=== PATIENT | female | born 1930 | race Caucasian/White ===

== ENCOUNTER 2019-09-26 16:33 | Inpatient (IN) | payer MEDICARE, OTHER ==
[~2019-09-26] VITALS: Ht 152.4 cm; Wt 57.1 kg
[2019-09-26 17:50] VITALS: BP 167/67
[2019-09-26] MEDS: IV NORMAL SALINE 1000ML BAG 1,000 ML IV SCH (18:23)
[2019-09-26 18:26] LABS: HEMATOCRIT 38.2 % (36.0-47.0); HEMOGLOBIN 12.8 g/dL (12.0-15.5); RED BLOOD COUNT 4.1 x10^6/uL (3.50-5.40); RED CELL DISTRIBUTION WIDTH 14.1 % (11.5-14.5); WHITE BLOOD COUNT 9.7 x10^3/uL (4.0-11.0)
[2019-09-26 18:41] LABS: ALBUMIN/GLOBULIN RATIO 0.9 (1.0-1.7); CALCIUM 9.1 mg/dL (8.5-10.1); CREATININE 0.9 mg/dL (0.6-1.0); GFR 59.2; POTASSIUM 3.5 mmol/L (3.5-5.1); TOTAL BILIRUBIN 0.6 mg/dL (0.2-1.0); TOTAL PROTEIN 6.3 g/dL (6.4-8.2)
[2019-09-26 19:55] VITALS: BP 172/69
[2019-09-26 22:38] VITALS: BP 168/71
[2019-09-27] VITALS (8 sets, daily range): BP systolic 138–190; BP diastolic 55–81
--- NOTE | 2019-09-27 04:20 | RAD ---
KUB History: NG tube placement. Technique: Supine view the abdomen. Comparison: CT September 26, 2019 Findings: Interval placement enteric tube with tip projecting over the region of the stomach. Dilated loops of small bowel within the imaged upper abdomen. Postop changes lower lumbar spine. Lung bases are degraded. Impression: 1. Interval placement enteric tube with tip projecting over region of the lateral stomach. Electronically signed by: Pedro Mercado DO (09/27/2019 4:17 AM) [id number]
[2019-09-27] MEDS: IV NORMAL SALINE 1000ML BAG 1,000 ML IV SCH (04:25)
[2019-09-27] MEDS: fentaNYL PF VIAL 100 MCG/2 ML VIAL IVP PRN ×2 (04:48→09:08)
[2019-09-27] MEDS: ONDANSETRON PF 4 MG/2 ML VIAL. IVP PRN (05:50)
[2019-09-27] MEDS: hydrALAZINE 20 MG/ML VIAL. IVP PRN ×2 (08:36→16:54)
[2019-09-27] MEDS: PANTOPRAZOLE IV PUSH 40 MG VIAL. IVP SCH (09:07)
--- NOTE | 2019-09-27 09:22 | HP ---
ADMIT DATE: 09/26/2019 HISTORY OF PRESENT ILLNESS: The patient is an 89-year-old female patient, a resident at [facility], who presented to the Emergency Room of [facility] with a complaint of abdominal pain, nausea and vomiting for the last 2 days. She also feels weak and dehydrated. Denied any fever or chills. She has a history of abdominal operation due to ovarian mass. She denied any blood in her stool. Denied any hematemesis. She states that her last bowel movement was about 4-5 days. Denied any chest pain or trouble breathing. She was evaluated in the Emergency Room of [facility] and her lab work was essentially unremarkable; however, CT scan of the abdomen and pelvis showed that the patient has distal small bowel obstruction, small amount of free fluid, but no free air and therefore, the patient has had an NG tube to intermittent suction, was transferred to [facility] for further evaluation by surgical team. She was kept n.p.o., started on IV fluid as well as pain medication. PAST MEDICAL HISTORY: Significant for osteoarthritis. She has also breast cancer. PAST SURGICAL HISTORY: Significant for right mastectomy, 2 back surgeries, bilateral cataract extraction, tonsillectomy, appendectomy, and removal of an ovarian cyst or tumor. She has also left axillary lymph node dissection with resultant left upper extremity lymphedema. ALLERGIES: She has no known drug allergies. MEDICATIONS: Her medication list is unknown. I actually contacted the [facility] to fax us the list of medications. FAMILY HISTORY: She had one older brother and one younger brother, both are . Her younger brother because of bowel perforation. His other one brother who is younger and healthy at the age of 76. Her father in his early 60s because of myocardial infarction. Mother also in her early 60s due to ruptured cerebral aneurysm. SOCIAL HISTORY: She has been celibate since for about 50 years now. 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 She spent 22 years in [place], [place] and has moved to the current facility about 2 years ago. She has never smoked. Drinks alcohol occasionally. REVIEW OF SYSTEMS: As per history of present illness. PHYSICAL EXAMINATION: GENERAL: On arrival to the Emergency Room, she looked well and was clearly in no apparent respiratory distress. No pallor, jaundice, cyanosis or thyromegaly. No jugular venous distention. No lower limb edema. VITAL SIGNS: Her heart rate was 77, blood pressure 159/76, temperature was 98.3, respiratory rate was 16, and oxygen saturation was 95%. HEAD, EYES, EARS, NOSE AND THROAT: Normocephalic, atraumatic. NECK: Supple. HEART: Showed normal first and second heart sounds. No gallop or murmur. CHEST: Clear to auscultation. No crepitation or rhonchi. ABDOMEN: Distended with some tenderness in the periumbilical area. Hyperactive bowel sounds. No masses. No pulsatile masses. NEUROLOGIC: She was alert, oriented x 3 with no obvious motor or sensory deficit. PSYCHOLOGICAL: She had affect, judgment and mood normal. She was investigated in the Emergency Room of [facility]. LABORATORY DATA: Her lab work showed a white cell count of 10,800, hemoglobin 13.9, hematocrit 42, MCV 95, and platelet count 367,000. Her chemistry showed a serum sodium 143, potassium 3.9, chloride 103, bicarbonate 31, anion gap of 9, BUN 19, creatinine 1.1, estimated GFR was 47 mL per minute. Her glucose 144, calcium was 10. Total bilirubin, AST, ALT, alkaline phosphatase were normal. Total protein 7.3, albumin 3.5 and lipase was 43. Her urinalysis essentially unremarkable. CT scan showed the liver and spleen are unremarkable on this noncontrasted study. The gallbladder is normal. There is an 11 mm hypodense nodule within the head of the pancreas, which measures 4 Hounsfield units consistent with a cyst, no extrahepatic biliary ductal dilatation is seen. No adrenal masses seen. No urinary tract stones or hydronephrosis or hydroureter is evident. No renal masses seen on this noncontrast study. The urinary bladder wall is smooth. Calcified atheromatous disease of the abdominal aorta is seen. No focal aneurysmal dilatation is seen. No abnormal enlarged lymph. No abdominal or pelvic lymphadenopathy is seen. The patient has bilateral inguinal hernias that are containing only fat. There is moderate distention of the stomach. Dilated loops of proximal small bowel are seen. There is a caliber change with respect to the distal small bowel. Therefore, the findings are consistent with a small-bowel obstruction. Mild mesenteric edema is seen. A small amount of free intraperitoneal fluid is seen. No free intraperitoneal air is seen. The appendix is unremarkable. Left lung base atelectasis is seen. Uterus is surgically absent. L4, L5 and S1 fusion is seen. No lytic process evident. ASSESSMENT AND PLAN: The patient was admitted with a small-bowel obstruction, transferred to [facility]. Continue with IV fluid, n.p.o. status and NG tube to intermittent suction. We did consult the surgical team. ANNITA RED MD DR: ANNY/kenyon JOB#: [id number] / [id number]
--- NOTE | 2019-09-27 10:10 | NUR ---
SW following. Discussed with RN, pt is from [facility] in [place]. NG tube, and bowel rest. RN anticipates pt will be here through the weekend. SW will continue to follow.
--- NOTE | 2019-09-27 10:27 | PN ---
DATE: 09/27/2019 SUBJECTIVE: The patient is resting slightly propped up in bed, in no apparent distress. She does complain of mild discomfort in her left lower quadrant. She also complained of burning sensation in her stomach. Denied any chills, rigors or fever, no nausea, no vomiting. She has not had any bowel movement, did not pass any gas. OBJECTIVE: GENERAL: When I examined her, she looked well and was clearly in no apparent respiratory distress. No pallor, jaundice, cyanosis or thyromegaly. No jugular venous distention. No lower limb edema. VITAL SIGNS: Her heart rate was 81, blood pressure was 190/73, temperature was 98, respiratory rate was 16, and oxygen saturation was 91% on room air. HEAD, EYES, EARS, NOSE AND THROAT: Showed normocephalic, atraumatic. She has an NG tube to the right nostril. NECK: Supple. CARDIAC: Normal first and second heart sounds. No gallop or murmur. CHEST: Clear to auscultation. No crepitation or rhonchi. ABDOMEN: Distended, soft with mild tenderness in the left lower quadrant. Bowel sounds are active. NEUROLOGIC: She is awake, alert, responding appropriately. All cranial nerves intact. She moves extremities without difficulty. Her intake and output incompletely recorded. LABORATORY DATA: Showed a white cell count 9700, hemoglobin 12.8, hematocrit 38, MCV 93, and platelet count 330,000. Her serum sodium was 142, potassium 3.5, chloride 106, bicarbonate 29, anion gap of 7, BUN 18, creatinine 0.9, estimated GFR was 59 mL per minute. Her glucose was 123, calcium was 9.1, and lactic acid was 0.8. Total bilirubin, AST, ALT, alkaline phosphatase were normal. Lactate dehydrogenase was 174. Total protein 6.3, albumin 3. ASSESSMENT: In summary, this is an 89-year-old female patient who was admitted with small-bowel obstruction. She continues to have an NG tube to intermittent suction. She did have a KUB done and it did show that she has dilated loops of small bowel within the imaged upper abdomen, postoperative changes in lower lumbar spine. PLAN: To continue with IV fluid, continue with pain management, antiemetic. I will start her on Protonix. We have already consulted the surgical team. I will also change her IV fluid to D5 half normal with potassium chloride and I will decide on further management accordingly. ANNITA RED MD DR: ANNY/kenyon JOB#: [id number] / [id number]
[2019-09-27] MEDS: POTASSIUM CL 20MEQ D5-0.45NACL 1,000 ML IV SCH (11:31)
--- NOTE | 2019-09-27 12:12 | PDOC2 ---
WARRENAMADO Galen BOOKING SUPERVISOR 09/27/19 1212: CONSULT Date of Consult Date of Consult DATE: 09/27/19 TIME: 12:07 Reason for Consult Reason for Consult: SBO Referring Physician Referring Physician: Dr Teague Identification/Chief Complaint Chief Complaint abdominal pain Source Source: Chart review, Patient History of Present Illness Reason for Visit: Abdominal pain, nausea, and emesis x 2 days. Reports hx of diarrhea for a while, however yesterday very small stool, nothing since, no flatus. Prior to that its been about a week since stool Past Medical History Heme/Onc: Cancer (breast) Musculoskeletal: Osteoarthritis Past Surgical History Past Surgical History: Appendectomy, Mastectomy, Other (removal ovarian tumor, back surgery) Family History Family History: Family History Unknown Social History No ALCOHOL: rare Drugs: None Lives: Alone Current Medications Current Medications Current Medications Sodium Chloride 1,000 ml @ 100 mls/hr Q10H IV Last administered on 09/27/19at 04:25; Start 09/26/19 at 17:45; Stop 09/27/19 at 09:11; Status DC Fentanyl Citrate (Fentanyl 2ml Vial) 25 mcg PRN Q3HRS PRN IVP PAIN Last administered on 09/27/19at 09:08; Start 09/26/19 at 17:45 Ondansetron HCl (Zofran) 4 mg PRN Q6HRS PRN IVP NAUSEA/VOMITING Last administered on 09/27/19at 05:50; Start 09/26/19 at 17:45 Hydralazine HCl (Apresoline Inj) 10 mg PRN Q4HRS PRN IVP ELEVATED BP, SEE COMMENTS Last administered on 09/27/19at 08:36; Start 09/27/19 at 08:30 Pantoprazole Sodium (PROTONIX VIAL for IV PUSH) 40 mg DAILYAC IVP Last administered on 09/27/19at 09:07; Start 09/27/19 at 10:00 Potassium Chloride/Dextrose/ Sod Cl 1,000 ml @ 75 mls/hr [id number] IV Last administered on 09/27/19at 11:31; Start 09/27/19 at 09:15 Allergies Allergies: Coded Allergies: amoxicillin (Verified Allergy, Unknown, 09/27/19) baclofen (Verified Allergy, Unknown, 09/27/19) cimetidine (Verified Allergy, Unknown, 09/27/19) clindamycin (Verified Allergy, Unknown, 09/27/19) levofloxacin (Verified Allergy, Unknown, 09/27/19) morphine (Verified Allergy, Unknown, 09/27/19) naproxen (Verified Allergy, Unknown, 09/27/19) ROS General: YES: Chills, Appetite (loss) PSYCHOLOGICAL ROS: No: Anxiety, Depression Eyes: No Blurry vision, No Decreased vision HEENT: No: Heacaches, Sore Throat Hematological and Lymphatic: No: Bleeding Problems, Blood Clots Respiratory: No: Cough, Shortness of breath Cardiovascular: No Chest Pain, No Palpitations Gastrointestinal: Yes Other (see hpi) Genitourinary: No Dysuria, No Hematuria Musculoskeletal: No Joint Pain, No Muscle Pain Neurological: No Impaired Coord/balance, No Numbness/Tingling Skin: No Pruritus, No Rash Physical Exam General: Alert, Oriented X3, Cooperative HEENT: Atraumatic, Other (NG bilious ) Lungs: Clear to auscultation, Normal air movement Heart: Regular rate, Normal S1, Normal S2 Abdomen: Soft, Other (ND, NTTP) Extremities: No clubbing, No cyanosis Skin: No rashes, No breakdown Neuro: Normal speech, Sensation intact Psych/Mental Status: Mental status NL, Mood NL MUSCULOSKELETAL: No deformity, No swelling Vitals VITALS Vital Signs Date Time Temp Pulse Resp B/P (MAP) Pulse Ox O2 Delivery O2 Flow Rate FiO2 09/27/19 11:30 Room Air 09/27/19 08:36 81 195/77 09/27/19 07:00 98.0 16 91 98.0 Labs Labs Laboratory Tests Test 09/26/19 18:15 White Blood Count 9.7 x10^3/uL (4.0-11.0) Red Blood Count 4.10 x10^6/uL (3.50-5.40) Hemoglobin 12.8 g/dL (12.0-15.5) Hematocrit 38.2 % (36.0-47.0) Mean Corpuscular Volume 93 fL (79-100) Mean Corpuscular Hemoglobin 31 pg (25-35) Mean Corpuscular Hemoglobin Concent 34 g/dL (31-37) Red Cell Distribution Width 14.1 % (11.5-14.5) Platelet Count 330 x10^3/uL (140-400) Sodium Level 142 mmol/L (136-145) Potassium Level 3.5 mmol/L (3.5-5.1) Chloride Level 106 mmol/L (98-107) Carbon Dioxide Level 29 mmol/L (21-32) Anion Gap 7 (6-14) Blood Urea Nitrogen 18 mg/dL (7-20) Creatinine 0.9 mg/dL (0.6-1.0) Estimated GFR (Cockcroft-Gault) 59.2 BUN/Creatinine Ratio 20 (6-20) Glucose Level 123 mg/dL (70-99) Lactic Acid Level 0.8 mmol/L (0.4-2.0) Calcium Level 9.1 mg/dL (8.5-10.1) Total Bilirubin 0.6 mg/dL (0.2-1.0) Aspartate Amino Transf (AST/SGOT) 24 U/L (15-37) Alanine Aminotransferase (ALT/SGPT) 22 U/L (14-59) Alkaline Phosphatase 99 U/L (46-116) Lactate Dehydrogenase 174 U/L (81-234) Total Protein 6.3 g/dL (6.4-8.2) Albumin 3.0 g/dL (3.4-5.0) Albumin/Globulin Ratio 0.9 (1.0-1.7) Laboratory Tests Test 09/26/19 18:15 White Blood Count 9.7 x10^3/uL (4.0-11.0) Red Blood Count 4.10 x10^6/uL (3.50-5.40) Hemoglobin 12.8 g/dL (12.0-15.5) Hematocrit 38.2 % (36.0-47.0) Mean Corpuscular Volume 93 fL (79-100) Mean Corpuscular Hemoglobin 31 pg (25-35) Mean Corpuscular Hemoglobin Concent 34 g/dL (31-37) Red Cell Distribution Width 14.1 % (11.5-14.5) Platelet Count 330 x10^3/uL (140-400) Sodium Level 142 mmol/L (136-145) Potassium Level 3.5 mmol/L (3.5-5.1) Chloride Level 106 mmol/L (98-107) Carbon Dioxide Level 29 mmol/L (21-32) Anion Gap 7 (6-14) Blood Urea Nitrogen 18 mg/dL (7-20) Creatinine 0.9 mg/dL (0.6-1.0) Estimated GFR (Cockcroft-Gault) 59.2 BUN/Creatinine Ratio 20 (6-20) Glucose Level 123 mg/dL (70-99) Lactic Acid Level 0.8 mmol/L (0.4-2.0) Calcium Level 9.1 mg/dL (8.5-10.1) Total Bilirubin 0.6 mg/dL (0.2-1.0) Aspartate Amino Transf (AST/SGOT) 24 U/L (15-37) Alanine Aminotransferase (ALT/SGPT) 22 U/L (14-59) Alkaline Phosphatase 99 U/L (46-116) Lactate Dehydrogenase 174 U/L (81-234) Total Protein 6.3 g/dL (6.4-8.2) Albumin 3.0 g/dL (3.4-5.0) Albumin/Globulin Ratio 0.9 (1.0-1.7) Assessment/Plan Assessment/Plan SBO vs ileus NG, hydration, bowel rest check plain films in AM KRUNAL JO MD 09/27/19 1553: CONSULT Assessment/Plan Assessment/Plan Patient seen and examined by me. She is comfortable, denies abdominal pain. No vomiting since admission. No flatus or BM. CT reviewed. Agree with Warren's assessment and plan. AMADO HAIDER APRN Sep 27, 2019 12:12 KRUNAL JO MD Sep 27, 2019 15:53
[2019-09-27] MEDS ORDERED: DIPH25TA64 PO (16:26)
[2019-09-27] MEDS ORDERED: CALC-109 PO (16:26)
[2019-09-27] MEDS ORDERED: IPRATROPIUM BROMIDE NS (16:26)
[2019-09-27] MEDS ORDERED: CHOL3000 PO (16:26)
[2019-09-27] MEDS ORDERED: LOPE-101 PO (16:26)
[2019-09-27] MEDS ORDERED: ACET500T68 PO (16:26)
[2019-09-27] MEDS ORDERED: ACET-704 PO (16:26)
[2019-09-27] MEDS ORDERED: [UNRECOGNIZED DRUG - CODE] PO (16:26)
[2019-09-27] MEDS ORDERED: LACT1CAP19 PO (16:26)
[2019-09-27] MEDS ORDERED: METR70GE2 MC (16:26)
[2019-09-27] MEDS ORDERED: ONDA4TAB12 PO (16:26)
[2019-09-27] MEDS ORDERED: KETO120S2 TP (16:26)
[2019-09-27] MEDS ORDERED: MOME45CR3 TP (16:26)
[2019-09-27] MEDS ORDERED: METO50TA6 PO (16:26)
[2019-09-27] MEDS ORDERED: TORS20TA2 PO (16:26)
[2019-09-27] MEDS ORDERED: DICL100G18 TP (16:26)
[2019-09-27] MEDS ORDERED: MAGN1TAB PO ×2 (16:26)
[2019-09-27] MEDS ORDERED: CELE200C PO (16:26)
[2019-09-27] MEDS ORDERED: POLY17PO29 PO (16:26)
[2019-09-27] MEDS ORDERED: ECHI400C12 PO (16:26)
[2019-09-27] MEDS ORDERED: POTA10TA12 PO (16:26)
[2019-09-27] MEDS ORDERED: BETA15CR5 TP (16:26)
[2019-09-27] MEDS ORDERED: SIMV40TA18 PO (16:26)
[2019-09-27] MEDS ORDERED: METO25TA4 PO (16:26)
[2019-09-27] MEDS ORDERED: BISM262T94 PO (16:26)
[2019-09-27] MEDS ORDERED: METH-38 PO (16:26)
[2019-09-27] MEDS ORDERED: ASPI-630 PO (16:26)
[2019-09-27] MEDS ORDERED: MULT-658 PO (16:26)
--- NOTE | 2019-09-27 18:10 | RAD ---
Exam: Frontal view of the abdomen INDICATION: NG tube placement TECHNIQUE: Frontal view of the abdomen Comparisons: None FINDINGS: Enteric tube with tip in the left upper quadrant likely within the stomach. Sidehole projects at the level of the distal esophagus. Multiple air-filled distended loops of bowel are noted in the visualized upper abdomen. IMPRESSION: Enteric tube as described above. Sidehole is likely in the distal esophagus. Recommend advancement of 5 to 7 cm. Electronically signed by: Neo Oliveira MD (09/27/2019 6:07 PM) [id number]
--- NOTE | 2019-09-27 19:15 | RAD ---
Exam: Abdomen one view INDICATION: NG tube placement TECHNIQUE: Frontal view of the abdomen Comparisons: Radiograph earlier today FINDINGS: There is been advancement of the enteric tube with tip in the left upper quadrant and sidehole also in the left upper quadrant likely within the stomach. Multiple air-filled dilated loops of small bowel are visualized in the upper abdomen. IMPRESSION: Advancement of the enteric tube which appears to be in appropriate position. Electronically signed by: Neo Oliveira MD (09/27/2019 7:12 PM) [id number]
--- NOTE | 2019-09-27 19:59 | NUR ---
Pt. tx to room 648. Gave BS report to Camila MORSE
[2019-09-27] MEDS: METOPROLOL TARTRATE 5 MG/5 ML VIAL. IVP SCH (20:50)
[2019-09-28] MEDS: POTASSIUM CL 20MEQ D5-0.45NACL 1,000 ML IV SCH (00:04)
[2019-09-28] MEDS: METOPROLOL TARTRATE 5 MG/5 ML VIAL. IVP SCH ×5 (00:22→23:28)
[2019-09-28 03:03] VITALS: BP 152/83
[2019-09-28 04:59] LABS: CREATININE 0.8 mg/dL (0.6-1.0); GFR 67.8; MAGNESIUM 2.4 mg/dL (1.8-2.4); POTASSIUM 3.4 mmol/L (3.5-5.1)
[2019-09-28] MEDS: PANTOPRAZOLE IV PUSH 40 MG VIAL. IVP SCH (06:27)
[2019-09-28 07:00] VITALS: BP 160/81
--- NOTE | 2019-09-28 08:05 | RAD ---
ACUTE ABDOMEN SERIES Indication: Small bowel obstruction Date of service: 09/28/2019 .Comparison: KUB from 09/27/[address] abdomen and pelvis from 09/26/2019 Procedure: PA chest and upright and supine abdomen views are obtained. Findings: Chest: Cardiac size and pulmonary vessels are normal. There is a feeding tube traversing the length of the chest and terminating in the left upper abdomen the stomach. Pneumonia, pneumothorax or pleural effusion are not present. Bones are normal Abdomen: Suggested increased gaseous distention of the small bowel loops throughout the central abdomen. There is stool in the right colon with relative paucity of air and stool in the left colon and rectosigmoid region. No definite pneumoperitoneum is identified. Impression: Normal Chest . Mildly increased gaseous distention of the small bowel loops. Small bowel obstruction not excluded. If indicated, follow-up CT scan of the abdomen would be useful for further evaluation. Electronically signed by: Prachi Mcqueen MD (09/28/2019 8:02 AM) [id number]
--- NOTE | 2019-09-28 08:26 | PN ---
DATE: 09/28/2019 SUBJECTIVE: The patient is resting, slightly propped up in bed, in no apparent distress, awake, alert. Denied any complaint, in particular, denied any nausea or vomiting. She has not had any bowel movement nor that she passed any gas. She continued to have NG tube to intermittent suction. She has had an acute abdomen series, which was not read yet. PHYSICAL EXAMINATION: GENERAL: When I examined her this morning, she looked well and was clearly in no apparent respiratory distress, slightly pale. No jaundice, cyanosis, or thyromegaly. No jugular venous distention. No lower limb edema. VITAL SIGNS: Her heart rate was 82, blood pressure was 160/80, temperature was 97.5, respiratory rate was 18, and oxygen saturation was 91% on room air. HEAD, EYES, EARS, NOSE, AND THROAT: Showed normocephalic, atraumatic. NECK: Supple. HEART: Normal first and second sounds. No gallop or murmur. CHEST: Clear to auscultation. No crepitation or rhonchi. ABDOMEN: Slightly distended presently. Soft, nontender. There is no guarding or rigidity. No organomegaly. All hernial orifices are intact. Bowel sounds normal. NEUROLOGIC: She is awake, alert, responding appropriately. All cranial nerves are intact. Moves extremities without difficulty. Her intake was 1300, output was 1100. LABORATORY DATA: As of this morning, her serum sodium is slightly up at 146, potassium 3.4, chloride 110, bicarbonate was 28, anion gap of 8, BUN 14, creatinine 0.8, estimated GFR was 68 mL per minute. Her glucose 136, calcium was 9, and magnesium was 2.4. ASSESSMENT: Small-bowel obstruction with NG tube to intermittent suction. Other medical problems include hypertension, hyperlipidemia as well as generalized osteoarthritis. PLAN: My plan is obviously to continue with IV fluid. Her sodium is slightly elevated, so we will change her IV fluid to D5 with 40 mEq of potassium chloride as she has also mild hypokalemia. ANNITA RED MD DR: ANNY/kenyon JOB#: [id number] / [id number]
[2019-09-28] MEDS: POTASSIUM CHLORIDE 40 MEQ in IV DEXTROSE 5% 1,000 ML IV SCH ×2 (09:27→22:06)
--- NOTE | 2019-09-28 09:58 | PDOC ---
AMADO HAIDER [employer] SUPERINTENDENT 09/28/19 0958: SURGICAL PROGRESS NOTE Subjective no pain no flatus no n/v Vital Signs Vital Signs Date Time Temp Pulse Resp B/P (MAP) Pulse Ox O2 Delivery O2 Flow Rate FiO2 09/28/19 07:00 97.5 82 18 160/81 (107) 91 Room Air 97.5 I&O Intake and Output 09/28/19 07:00 Intake Total 0 ml Output Total 475 ml Balance -475 ml Intake Oral 0 ml Output Urine Total 50 ml Gastric Drainage Total 425 ml # Voids 3 General: Alert, Oriented X3, Cooperative HEENT: Other (ng bilious ) Abdomen: Soft, No tenderness Labs Laboratory Tests Test 09/26/19 18:15 09/28/19 03:40 White Blood Count 9.7 x10^3/uL (4.0-11.0) Red Blood Count 4.10 x10^6/uL (3.50-5.40) Hemoglobin 12.8 g/dL (12.0-15.5) Hematocrit 38.2 % (36.0-47.0) Mean Corpuscular Volume 93 fL (79-100) Mean Corpuscular Hemoglobin 31 pg (25-35) Mean Corpuscular Hemoglobin Concent 34 g/dL (31-37) Red Cell Distribution Width 14.1 % (11.5-14.5) Platelet Count 330 x10^3/uL (140-400) Sodium Level 142 mmol/L (136-145) 146 mmol/L (136-145) Potassium Level 3.5 mmol/L (3.5-5.1) 3.4 mmol/L (3.5-5.1) Chloride Level 106 mmol/L (98-107) 110 mmol/L (98-107) Carbon Dioxide Level 29 mmol/L (21-32) 28 mmol/L (21-32) Anion Gap 7 (6-14) 8 (6-14) Blood Urea Nitrogen 18 mg/dL (7-20) 14 mg/dL (7-20) Creatinine 0.9 mg/dL (0.6-1.0) 0.8 mg/dL (0.6-1.0) Estimated GFR (Cockcroft-Gault) 59.2 67.8 BUN/Creatinine Ratio 20 (6-20) Glucose Level 123 mg/dL (70-99) 136 mg/dL (70-99) Lactic Acid Level 0.8 mmol/L (0.4-2.0) Calcium Level 9.1 mg/dL (8.5-10.1) 9.0 mg/dL (8.5-10.1) Total Bilirubin 0.6 mg/dL (0.2-1.0) Aspartate Amino Transf (AST/SGOT) 24 U/L (15-37) Alanine Aminotransferase (ALT/SGPT) 22 U/L (14-59) Alkaline Phosphatase 99 U/L (46-116) Lactate Dehydrogenase 174 U/L (81-234) Total Protein 6.3 g/dL (6.4-8.2) Albumin 3.0 g/dL (3.4-5.0) Albumin/Globulin Ratio 0.9 (1.0-1.7) Magnesium Level 2.4 mg/dL (1.8-2.4) Laboratory Tests Test 09/28/19 03:40 Sodium Level 146 mmol/L (136-145) Potassium Level 3.4 mmol/L (3.5-5.1) Chloride Level 110 mmol/L (98-107) Carbon Dioxide Level 28 mmol/L (21-32) Anion Gap 8 (6-14) Blood Urea Nitrogen 14 mg/dL (7-20) Creatinine 0.8 mg/dL (0.6-1.0) Estimated GFR (Cockcroft-Gault) 67.8 Glucose Level 136 mg/dL (70-99) Calcium Level 9.0 mg/dL (8.5-10.1) Magnesium Level 2.4 mg/dL (1.8-2.4) Assessment/Plan SBO no improvement will check SBFT with GG LOTUS ZHOU MD 09/28/19 1648: SURGICAL PROGRESS NOTE Assessment/Plan Pt seen and examined. Agree with Ms. Haider's note Pt with c/o abd bloating abd distended, NTTP SBFT ongoing AMADO HAIDER APRN Sep 28, 2019 09:58 LOTUS ZHOU MD Sep 28, 2019 16:48
[2019-09-28] MEDS ORDERED: IOHEXOL 300 MG/ML 100ML VIAL. ONE (10:24)
[2019-09-28] MEDS ORDERED: CONTRAST GIVEN. MC PRN (10:30)
[2019-09-28] MEDS ORDERED: IOHEXOL 300 MG/ML 100ML VIAL. PO ONE (10:30)
[2019-09-28 11:00] VITALS: BP 147/77
[2019-09-28] MEDS: ONDANSETRON PF 4 MG/2 ML VIAL. IVP PRN (14:06)
[2019-09-28 15:00] VITALS: BP 182/83
[2019-09-28] MEDS: fentaNYL PF VIAL 100 MCG/2 ML VIAL IVP PRN ×2 (16:40→22:01)
[2019-09-28 19:00] VITALS: BP 183/87
[2019-09-28 23:00] VITALS: BP 179/93
[2019-09-29 03:00] VITALS: BP 156/61
--- NOTE | 2019-09-29 04:46 | NUR ---
Pt up to [facility]- had 2 very large BM- second one with hard bits to it. The rest loose and brown. Had 900 out of NG. Pt reported feeling a little better. Will continue to monitor pt status closely.
[2019-09-29 05:30] LABS: HEMATOCRIT 40.8 % (36.0-47.0); HEMOGLOBIN 13.5 g/dL (12.0-15.5); RED BLOOD COUNT 4.32 x10^6/uL (3.50-5.40); RED CELL DISTRIBUTION WIDTH 14.5 % (11.5-14.5); WHITE BLOOD COUNT 7.6 x10^3/uL (4.0-11.0)
[2019-09-29 05:33] LABS: ALBUMIN 2.8 g/dL (3.4-5.0); ALBUMIN/GLOBULIN RATIO 0.8 (1.0-1.7); CALCIUM 9.1 mg/dL (8.5-10.1); CREATININE 0.8 mg/dL (0.6-1.0); GFR 67.8; POTASSIUM 3.4 mmol/L (3.5-5.1); TOTAL BILIRUBIN 0.8 mg/dL (0.2-1.0); TOTAL PROTEIN 6.2 g/dL (6.4-8.2)
[2019-09-29] MEDS: METOPROLOL TARTRATE 5 MG/5 ML VIAL. IVP SCH ×4 (06:00→23:00)
[2019-09-29] MEDS: PANTOPRAZOLE IV PUSH 40 MG VIAL. IVP SCH (07:30)
[2019-09-29 07:59] VITALS: BP 146/81
--- NOTE | 2019-09-29 08:28 | RAD ---
Exam performed: Gastrografin Small bowel series. HISTORY: Suspected small bowel obstruction. DATE OF SERVICE: 10/11/2019. COMPARISON: Acute abdominal series from earlier the same day. FINDINGS: Acute abdominal series from earlier demonstrates gaseous distention of the small bowel loops. Patient was injected 400 cc of Omnipaque 300 through the feeding tube and sequential portable KUB radiographs were obtained up to 21 hours. There is prompt emptying of the stomach with contrast seen in the small bowel soon after injection. The subsequent radiographs demonstrate slow forward propulsion of the contrast with progressive opacification of dilated small bowel loops. The 21 hour image demonstrates contrast throughout the colon including the rectosigmoid region. IMPRESSION: Small bowel series demonstrates slow progressive opacification of the small bowel loops without definite evidence of obstruction. Findings consistent with diffuse ileus pattern. Electronically signed by: Prachi Mcqueen MD (09/29/2019 8:25 AM) [id number]
--- NOTE | 2019-09-29 09:03 | PN ---
DATE: SUBJECTIVE: The patient is resting slightly propped up in bed, awake, alert. On questioning her, denied any complaint, particularly denied any abdominal pain. She apparently has had small bowel follow-through yesterday and she had a large bowel movement. The small bowel follow-through showed that there is slow progressive opacification of the small bowel loops without definite evidence of obstruction. Findings are consistent with diffuse ileus pattern. PHYSICAL EXAMINATION: GENERAL: When I saw her this morning, she looked well and was clearly in no apparent respiratory distress. No pallor, jaundice, cyanosis or thyromegaly. No jugular venous distention. No lower limb edema. VITAL SIGNS: Her heart rate was 99, blood pressure was 146/81, temperature 97.5, respiratory rate 20 and oxygen saturation was 95%. ABDOMEN: Soft, nontender. Bowel sounds are clearly active. Her intake incompletely recorded, output was 475. LABORATORY DATA: As of this morning, her white cell count was 7600, hemoglobin 13, hematocrit 40, MCV 94 and platelet count 332,000. Her chemistry showed a serum sodium 146, potassium 3.4, chloride 109, bicarbonate 26, anion gap of 11, BUN 16, creatinine 0.8, estimated GFR was 68 mL per minute. Glucose 114, calcium was 9.1. Total bilirubin, AST, ALT, alkaline phosphatase normal. Total protein 6.2, albumin 2.8. ASSESSMENT: 1. Small-bowel obstruction versus paralytic ileus, seems to be resolving. 2. Mild hypernatremia and hypokalemia. 3. Hypertension. 4. Hyperlipidemia. 5. Generalized osteoarthritis. PLAN: My plan is to continue with D5. ANNITA RED MD DR: ANNY/kenyon JOB#: [id number] / [id number]
--- NOTE | 2019-09-29 10:48 | PDOC ---
AMADO HAIDER PATIENT CLERICAL ASSISTANT 09/29/19 1048: SURGICAL PROGRESS NOTE Subjective feels better had 2 large stools after SBFT, now loose stools Vital Signs Vital Signs Date Time Temp Pulse Resp B/P (MAP) Pulse Ox O2 Delivery O2 Flow Rate FiO2 09/29/19 07:59 97.5 99 20 146/81 (102) 95 Nasal Cannula 3.0 97.5 I&O Intake and Output 09/29/19 07:00 Intake Total 200 ml Output Total 2952 ml Balance -2752 ml Intake Oral 200 ml Output Urine Total 100 ml Stool Total 2 ml Gastric Drainage Total 900 ml Drainage Total 1950 ml # Voids 1 # Bowel Movements 2 General: Alert, Oriented X3, Cooperative Abdomen: Soft, No tenderness Labs Laboratory Tests Test 09/28/19 03:40 09/29/19 05:00 Sodium Level 146 mmol/L (136-145) 146 mmol/L (136-145) Potassium Level 3.4 mmol/L (3.5-5.1) 3.4 mmol/L (3.5-5.1) Chloride Level 110 mmol/L (98-107) 109 mmol/L (98-107) Carbon Dioxide Level 28 mmol/L (21-32) 26 mmol/L (21-32) Anion Gap 8 (6-14) 11 (6-14) Blood Urea Nitrogen 14 mg/dL (7-20) 16 mg/dL (7-20) Creatinine 0.8 mg/dL (0.6-1.0) 0.8 mg/dL (0.6-1.0) Estimated GFR (Cockcroft-Gault) 67.8 67.8 Glucose Level 136 mg/dL (70-99) 114 mg/dL (70-99) Calcium Level 9.0 mg/dL (8.5-10.1) 9.1 mg/dL (8.5-10.1) Magnesium Level 2.4 mg/dL (1.8-2.4) White Blood Count 7.6 x10^3/uL (4.0-11.0) Red Blood Count 4.32 x10^6/uL (3.50-5.40) Hemoglobin 13.5 g/dL (12.0-15.5) Hematocrit 40.8 % (36.0-47.0) Mean Corpuscular Volume 94 fL (79-100) Mean Corpuscular Hemoglobin 31 pg (25-35) Mean Corpuscular Hemoglobin Concent 33 g/dL (31-37) Red Cell Distribution Width 14.5 % (11.5-14.5) Platelet Count 332 x10^3/uL (140-400) BUN/Creatinine Ratio 20 (6-20) Total Bilirubin 0.8 mg/dL (0.2-1.0) Aspartate Amino Transf (AST/SGOT) 19 U/L (15-37) Alanine Aminotransferase (ALT/SGPT) 14 U/L (14-59) Alkaline Phosphatase 80 U/L (46-116) Total Protein 6.2 g/dL (6.4-8.2) Albumin 2.8 g/dL (3.4-5.0) Albumin/Globulin Ratio 0.8 (1.0-1.7) Laboratory Tests Test 09/29/19 05:00 White Blood Count 7.6 x10^3/uL (4.0-11.0) Red Blood Count 4.32 x10^6/uL (3.50-5.40) Hemoglobin 13.5 g/dL (12.0-15.5) Hematocrit 40.8 % (36.0-47.0) Mean Corpuscular Volume 94 fL (79-100) Mean Corpuscular Hemoglobin 31 pg (25-35) Mean Corpuscular Hemoglobin Concent 33 g/dL (31-37) Red Cell Distribution Width 14.5 % (11.5-14.5) Platelet Count 332 x10^3/uL (140-400) Sodium Level 146 mmol/L (136-145) Potassium Level 3.4 mmol/L (3.5-5.1) Chloride Level 109 mmol/L (98-107) Carbon Dioxide Level 26 mmol/L (21-32) Anion Gap 11 (6-14) Blood Urea Nitrogen 16 mg/dL (7-20) Creatinine 0.8 mg/dL (0.6-1.0) Estimated GFR (Cockcroft-Gault) 67.8 BUN/Creatinine Ratio 20 (6-20) Glucose Level 114 mg/dL (70-99) Calcium Level 9.1 mg/dL (8.5-10.1) Total Bilirubin 0.8 mg/dL (0.2-1.0) Aspartate Amino Transf (AST/SGOT) 19 U/L (15-37) Alanine Aminotransferase (ALT/SGPT) 14 U/L (14-59) Alkaline Phosphatase 80 U/L (46-116) Total Protein 6.2 g/dL (6.4-8.2) Albumin 2.8 g/dL (3.4-5.0) Albumin/Globulin Ratio 0.8 (1.0-1.7) Problem List ileus SBFT without obstruction--improved and will DC NG start clears LOTUS ZHOU MD 09/29/19 1146: SURGICAL PROGRESS NOTE Assessment/Plan Pt seen and examined. Agree with Ms. Haider's note Pt feels better, passing loose stools NGT out abd soft will try some PO AMADO HAIDER APRN Sep 29, 2019 10:48 LOTUS ZHOU MD Sep 29, 2019 11:46
[2019-09-29] MEDS: POTASSIUM CHLORIDE 40 MEQ in IV DEXTROSE 5% 1,000 ML IV SCH (11:42)
[2019-09-29 11:59] VITALS: BP 161/89
[2019-09-29 15:59] VITALS: BP 180/91
--- NOTE | 2019-09-29 17:28 | NUR ---
pt did not have IV access all day till 1700..she was a hard stick and could not administer any IVP/IV meds/fluids... she now has 22 G in her Right wrist..restarting her fluids from this morning that were not finished due to bad IV. Jerad Javier RN
[2019-09-29] MEDS: ONDANSETRON PF 4 MG/2 ML VIAL. IVP PRN ×2 (18:18→23:00)
[2019-09-29 19:00] VITALS: BP 169/90
[2019-09-29] MEDS ORDERED: METOCLOPRAMIDE HCL 10 MG/2 ML VIAL. IVP PRN (20:30)
[2019-09-29] MEDS: fentaNYL PF VIAL 100 MCG/2 ML VIAL IVP PRN (22:59)
[2019-09-29 23:05] VITALS: BP 177/76
--- NOTE | 2019-09-30 02:06 | RAD ---
Supine and abdomen. HISTORY: NG placement Supine views were taken of the abdomen. There is an NG tube in the stomach. Stomach is mildly distended. There are distended loops of small bowel. There is contrast in the colon. Patient had previous lumbar spine series fusion surgery. There is thoracolumbar scoliosis. IMPRESSION: 1. Bowel distention. 2. NG tube in the stomach. Electronically signed by: Dave Osman MD (09/30/2019 2:03 AM) [id number]
[2019-09-30] MEDS: fentaNYL PF VIAL 100 MCG/2 ML VIAL IVP PRN (02:43)
[2019-09-30 03:08] VITALS: BP 169/82
[2019-09-30] MEDS: POTASSIUM CHLORIDE 40 MEQ in IV DEXTROSE 5% 1,000 ML IV SCH ×2 (03:44→17:33)
[2019-09-30] MEDS: METOPROLOL TARTRATE 5 MG/5 ML VIAL. IVP SCH ×4 (05:25→23:33)
[2019-09-30 05:38] LABS: CALCIUM 8.6 mg/dL (8.5-10.1); CREATININE 0.7 mg/dL (0.6-1.0); GFR 79.2; POTASSIUM 3.6 mmol/L (3.5-5.1)
[2019-09-30 07:00] VITALS: BP 148/73
--- NOTE | 2019-09-30 09:34 | PN ---
DATE: 09/30/2019 SUBJECTIVE: The patient currently did have 2 large stools after the small bowel follow through and did have also some loose bowel movement; however, she continued to complain of nausea and vomiting, and she was started on a clear liquid, but continued to have complaint of nausea and vomiting. We did try with Zofran and then also Reglan, and as she continued to be constantly nauseous and I actually recommended to place an NG tube back. The patient is feeling much better now. Her abdomen is very soft, nontender. Bowel sounds are audible. Her KUB this morning showed that the stomach is mildly distended. There are distended loops of small bowel. There is contrast in the colon. The patient had previous lumbar spine series fusion surgery. There is thoracolumbar scoliosis. PHYSICAL EXAMINATION: GENERAL: When I examined her this morning, she was resting slightly propped up in bed, in no apparent distress. No pallor, jaundice, cyanosis, or thyromegaly. No jugular venous distension. No lower limb edema. VITAL SIGNS: Her heart rate was 91, blood pressure was 148/73, temperature 97.8, respiratory rate was 18, and oxygen saturation was 92%. HEAD, EYES, EARS, NOSE AND THROAT: Normocephalic, atraumatic. She has an NG tube to the right nostril. NECK: Supple. HEART: Normal first and second heart sounds. No gallop or murmur. CHEST: Clear to auscultation. No crepitation or rhonchi. ABDOMEN: Distended, soft, nontender. No guarding or rigidity. No organomegaly. All hernial orifices are intact. Bowel sounds normal. NEUROLOGIC: She is awake, alert, responding appropriately. All cranial nerves are intact. She moves extremities without difficulty. Her intake over the last 24 hours was completely recorded. Her output was 3950 of which 900 mL were drainage from the NG tube. LABORATORY DATA: Her lab work this morning showed a serum sodium 144, potassium 3.6, chloride 106, bicarbonate 28, anion gap of 10, BUN 11, creatinine 0.7, estimated GFR was 79 mL per minute. Her glucose 152 and calcium was 8.6. ASSESSMENT: The patient was admitted with questionable small-bowel obstruction versus paralytic ileus that seemed to have resolved, but yesterday she had 2 large bowel movements and then also loose bowel movement; however, she was constantly nauseous and vomiting according to nursing staff. We tried Zofran and Reglan without much improvement and therefore an NG tube was placed. Her hyponatremia is resolved, as well as hypokalemia. Other medical problems include hypertension, hyperlipidemia and generalized osteoarthritis. PLAN: My plan is to continue with IV fluid for the time being. Await the surgical team's decision as the patient was constantly nauseous yesterday despite antiemetics including Zofran and Reglan. ANNITA RED MD DR: ANNY/kenyon JOB#: [id number] / [id number]
--- NOTE | 2019-09-30 09:37 | PDOC ---
AMADO HAIDER ROBOTIC WELD TECHNICIAN 09/30/19 0937: SURGICAL PROGRESS NOTE Subjective vomiting over night having loose stool NG back now Vital Signs Vital Signs Date Time Temp Pulse Resp B/P (MAP) Pulse Ox O2 Delivery O2 Flow Rate FiO2 09/30/19 07:00 97.8 91 18 148/73 (98) 92 Room Air 97.8 09/29/19 23:29 3.0 I&O Intake and Output 09/30/19 07:00 Output Total 600 ml Balance -600 ml Output Urine Total 0 ml Gastric Drainage Total 600 ml General: Alert, Oriented X3, Cooperative HEENT: Other (ng bilious ) Abdomen: Soft, No tenderness Labs Laboratory Tests Test 09/29/19 05:00 09/30/19 04:20 White Blood Count 7.6 x10^3/uL (4.0-11.0) Red Blood Count 4.32 x10^6/uL (3.50-5.40) Hemoglobin 13.5 g/dL (12.0-15.5) Hematocrit 40.8 % (36.0-47.0) Mean Corpuscular Volume 94 fL (79-100) Mean Corpuscular Hemoglobin 31 pg (25-35) Mean Corpuscular Hemoglobin Concent 33 g/dL (31-37) Red Cell Distribution Width 14.5 % (11.5-14.5) Platelet Count 332 x10^3/uL (140-400) Sodium Level 146 mmol/L (136-145) 144 mmol/L (136-145) Potassium Level 3.4 mmol/L (3.5-5.1) 3.6 mmol/L (3.5-5.1) Chloride Level 109 mmol/L (98-107) 106 mmol/L (98-107) Carbon Dioxide Level 26 mmol/L (21-32) 28 mmol/L (21-32) Anion Gap 11 (6-14) 10 (6-14) Blood Urea Nitrogen 16 mg/dL (7-20) 11 mg/dL (7-20) Creatinine 0.8 mg/dL (0.6-1.0) 0.7 mg/dL (0.6-1.0) Estimated GFR (Cockcroft-Gault) 67.8 79.2 BUN/Creatinine Ratio 20 (6-20) Glucose Level 114 mg/dL (70-99) 152 mg/dL (70-99) Calcium Level 9.1 mg/dL (8.5-10.1) 8.6 mg/dL (8.5-10.1) Total Bilirubin 0.8 mg/dL (0.2-1.0) Aspartate Amino Transf (AST/SGOT) 19 U/L (15-37) Alanine Aminotransferase (ALT/SGPT) 14 U/L (14-59) Alkaline Phosphatase 80 U/L (46-116) Total Protein 6.2 g/dL (6.4-8.2) Albumin 2.8 g/dL (3.4-5.0) Albumin/Globulin Ratio 0.8 (1.0-1.7) Laboratory Tests Test 09/30/19 04:20 Sodium Level 144 mmol/L (136-145) Potassium Level 3.6 mmol/L (3.5-5.1) Chloride Level 106 mmol/L (98-107) Carbon Dioxide Level 28 mmol/L (21-32) Anion Gap 10 (6-14) Blood Urea Nitrogen 11 mg/dL (7-20) Creatinine 0.7 mg/dL (0.6-1.0) Estimated GFR (Cockcroft-Gault) 79.2 Glucose Level 152 mg/dL (70-99) Calcium Level 8.6 mg/dL (8.5-10.1) Assessment/Plan ileus no surgical needs work toward DC ng as bowel function improves KRUNAL JO MD 10/01/19 1059: SURGICAL PROGRESS NOTE Assessment/Plan Agree with Warren's assessment and plan. AMADO HAIDER APRN Sep 30, 2019 09:37 KRUNAL JO MD Oct 01, 2019 10:59
[2019-09-30] MEDS: PANTOPRAZOLE IV PUSH 40 MG VIAL. IVP SCH (09:46)
[2019-09-30 11:00] VITALS: BP 141/69
[2019-09-30 15:00] VITALS: BP 140/74
[2019-09-30 19:55] VITALS: BP 158/92
[2019-09-30 23:11] VITALS: BP 147/81
[2019-10-01 03:38] VITALS: BP 131/74
[2019-10-01 04:23] LABS: HEMATOCRIT 36.2 % (36.0-47.0); HEMOGLOBIN 12.1 g/dL (12.0-15.5); RED BLOOD COUNT 3.87 x10^6/uL (3.50-5.40); RED CELL DISTRIBUTION WIDTH 14.3 % (11.5-14.5); WHITE BLOOD COUNT 6.7 x10^3/uL (4.0-11.0)
[2019-10-01] MEDS: POTASSIUM CHLORIDE 40 MEQ in IV DEXTROSE 5% 1,000 ML IV SCH ×2 (05:22→18:26)
[2019-10-01] MEDS: METOPROLOL TARTRATE 5 MG/5 ML VIAL. IVP SCH ×4 (05:23→23:22)
[2019-10-01 05:28] LABS: ALBUMIN 2.3 g/dL (3.4-5.0); ALBUMIN/GLOBULIN RATIO 0.8 (1.0-1.7); CALCIUM 8.1 mg/dL (8.5-10.1); CREATININE 0.6 mg/dL (0.6-1.0); GFR 94.6; POTASSIUM 3.4 mmol/L (3.5-5.1); TOTAL BILIRUBIN 0.6 mg/dL (0.2-1.0); TOTAL PROTEIN 5.1 g/dL (6.4-8.2)
[2019-10-01 07:00] VITALS: BP 147/77
[2019-10-01] MEDS: PANTOPRAZOLE IV PUSH 40 MG VIAL. IVP SCH (09:30)
--- NOTE | 2019-10-01 10:33 | NUR ---
SS following up with discharge planning. SS spoke with [facility], ; fax [phone], and was notified that when medically stable they would like pt to return to the [facility]. SS will continue to follow for discharge planning.
[2019-10-01 11:00] VITALS: BP 172/81
--- NOTE | 2019-10-01 11:01 | PDOC ---
SURGICAL PROGRESS NOTE Subjective Feeling better, has had several small BM's Vital Signs Vital Signs Date Time Temp Pulse Resp B/P (MAP) Pulse Ox O2 Delivery O2 Flow Rate FiO2 10/01/19 07:00 98.0 80 16 147/77 (100) 92 Room Air 98.0 09/30/19 07:50 3.0 I&O Intake and Output 10/01/19 07:00 Output Total 225 ml Balance -225 ml Gastric Drainage Total 225 ml # Voids 5 PATIENT HAS A LAI: No General: Alert, Oriented X3, Cooperative, mild distress Abdomen: Normal bowel sounds, Soft, No tenderness, Other (NGT in place) Labs Laboratory Tests Test 09/30/19 04:20 10/01/19 03:25 Sodium Level 144 mmol/L (136-145) 142 mmol/L (136-145) Potassium Level 3.6 mmol/L (3.5-5.1) 3.4 mmol/L (3.5-5.1) Chloride Level 106 mmol/L (98-107) 106 mmol/L (98-107) Carbon Dioxide Level 28 mmol/L (21-32) 28 mmol/L (21-32) Anion Gap 10 (6-14) 8 (6-14) Blood Urea Nitrogen 11 mg/dL (7-20) 8 mg/dL (7-20) Creatinine 0.7 mg/dL (0.6-1.0) 0.6 mg/dL (0.6-1.0) Estimated GFR (Cockcroft-Gault) 79.2 94.6 Glucose Level 152 mg/dL (70-99) 93 mg/dL (70-99) Calcium Level 8.6 mg/dL (8.5-10.1) 8.1 mg/dL (8.5-10.1) White Blood Count 6.7 x10^3/uL (4.0-11.0) Red Blood Count 3.87 x10^6/uL (3.50-5.40) Hemoglobin 12.1 g/dL (12.0-15.5) Hematocrit 36.2 % (36.0-47.0) Mean Corpuscular Volume 94 fL (79-100) Mean Corpuscular Hemoglobin 31 pg (25-35) Mean Corpuscular Hemoglobin Concent 34 g/dL (31-37) Red Cell Distribution Width 14.3 % (11.5-14.5) Platelet Count 275 x10^3/uL (140-400) BUN/Creatinine Ratio 13 (6-20) Total Bilirubin 0.6 mg/dL (0.2-1.0) Aspartate Amino Transf (AST/SGOT) 14 U/L (15-37) Alanine Aminotransferase (ALT/SGPT) 11 U/L (14-59) Alkaline Phosphatase 60 U/L (46-116) Total Protein 5.1 g/dL (6.4-8.2) Albumin 2.3 g/dL (3.4-5.0) Albumin/Globulin Ratio 0.8 (1.0-1.7) Laboratory Tests Test 10/01/19 03:25 White Blood Count 6.7 x10^3/uL (4.0-11.0) Red Blood Count 3.87 x10^6/uL (3.50-5.40) Hemoglobin 12.1 g/dL (12.0-15.5) Hematocrit 36.2 % (36.0-47.0) Mean Corpuscular Volume 94 fL (79-100) Mean Corpuscular Hemoglobin 31 pg (25-35) Mean Corpuscular Hemoglobin Concent 34 g/dL (31-37) Red Cell Distribution Width 14.3 % (11.5-14.5) Platelet Count 275 x10^3/uL (140-400) Sodium Level 142 mmol/L (136-145) Potassium Level 3.4 mmol/L (3.5-5.1) Chloride Level 106 mmol/L (98-107) Carbon Dioxide Level 28 mmol/L (21-32) Anion Gap 8 (6-14) Blood Urea Nitrogen 8 mg/dL (7-20) Creatinine 0.6 mg/dL (0.6-1.0) Estimated GFR (Cockcroft-Gault) 94.6 BUN/Creatinine Ratio 13 (6-20) Glucose Level 93 mg/dL (70-99) Calcium Level 8.1 mg/dL (8.5-10.1) Total Bilirubin 0.6 mg/dL (0.2-1.0) Aspartate Amino Transf (AST/SGOT) 14 U/L (15-37) Alanine Aminotransferase (ALT/SGPT) 11 U/L (14-59) Alkaline Phosphatase 60 U/L (46-116) Total Protein 5.1 g/dL (6.4-8.2) Albumin 2.3 g/dL (3.4-5.0) Albumin/Globulin Ratio 0.8 (1.0-1.7) Assessment/Plan Ileus having BMs Clamp NGT KRUNAL JO MD Oct 01, 2019 11:01
--- NOTE | 2019-10-01 12:47 | PN ---
DATE: 10/01/2019 SUBJECTIVE: The patient is resting slightly propped up in bed, in no apparent distress. She denied any nausea or vomiting. Denied any abdominal pain; however, she has not had any bowel movement, did not pass any gas according to her. PHYSICAL EXAMINATION: GENERAL: When I examined her, she looked well and was clearly in no apparent distress. VITAL SIGNS: Her heart rate was 80, blood pressure 147/77, temperature was 98, respiratory rate 16, and oxygen saturation was 92% on room air. ABDOMEN: Soft, nontender. There is no guarding or rigidity. No organomegaly. All hernial orifices are intact. Bowel sounds are normal. NEUROLOGIC: She is grossly intact. Her intake was incompletely recorded, output was 600. LABORATORY DATA: As of this morning, her white cell count was 6700, hemoglobin 12, hematocrit 36, MCV 94 and platelet count 275,000. Her chemistry showed a serum sodium 142, potassium 3.4, chloride 106, bicarbonate 28, anion gap of 8, BUN 8, creatinine 0.6, estimated GFR was 95 mL per minute. Her glucose was 93, calcium was 8.1. Total bilirubin, AST, ALT, alkaline phosphatase were normal and total protein was 5.1, albumin 2.3. ASSESSMENT: Paralytic ileus. The patient has not had any bowel movement and did not pass any flatus. We will continue with NG tube to suction. Continue with IV fluid for now. ANNITA RED MD DR: ANNY/kenyon JOB#: [id number] / [id number]
[2019-10-01 15:00] VITALS: BP 166/69
[2019-10-01 19:19] VITALS: BP 164/85
[2019-10-01 23:22] VITALS: BP 139/59
[2019-10-01] MEDS: fentaNYL PF VIAL 100 MCG/2 ML VIAL IVP PRN (23:35)
[2019-10-02] VITALS (7 sets, daily range): BP systolic 118–169; BP diastolic 60–86
[2019-10-02] MEDS: METOPROLOL TARTRATE 5 MG/5 ML VIAL. IVP SCH ×4 (06:30→23:27)
[2019-10-02 07:18] LABS: CALCIUM 8.4 mg/dL (8.5-10.1); CREATININE 0.6 mg/dL (0.6-1.0); GFR 94.6; POTASSIUM 4.1 mmol/L (3.5-5.1)
[2019-10-02] MEDS: POTASSIUM CHLORIDE 40 MEQ in IV DEXTROSE 5% 1,000 ML IV SCH ×2 (07:42→22:05)
[2019-10-02] MEDS: fentaNYL PF VIAL 100 MCG/2 ML VIAL IVP PRN (09:06)
[2019-10-02] MEDS: PANTOPRAZOLE IV PUSH 40 MG VIAL. IVP SCH (09:07)
--- NOTE | 2019-10-02 12:20 | PDOC ---
SURGICAL PROGRESS NOTE Subjective Patient doing quite well complaints right foot pain otherwise no abdominal pain no nausea vomiting and loose stools Vital Signs Vital Signs Date Time Temp Pulse Resp B/P (MAP) Pulse Ox O2 Delivery O2 Flow Rate FiO2 10/02/19 11:12 97.9 101 18 167/84 (111) 97 Room Air 97.9 10/02/19 08:00 3.0 I&O Intake and Output 10/02/19 07:00 Output Total 200 ml Balance -200 ml Output Urine Total 200 ml # Voids 4 # Bowel Movements 1 PATIENT HAS A LAI: No General: Alert, Oriented X3, Cooperative, mild distress Abdomen: Normal bowel sounds, Soft, No tenderness Labs Laboratory Tests Test 10/01/19 03:25 10/02/19 06:55 White Blood Count 6.7 x10^3/uL (4.0-11.0) Red Blood Count 3.87 x10^6/uL (3.50-5.40) Hemoglobin 12.1 g/dL (12.0-15.5) Hematocrit 36.2 % (36.0-47.0) Mean Corpuscular Volume 94 fL (79-100) Mean Corpuscular Hemoglobin 31 pg (25-35) Mean Corpuscular Hemoglobin Concent 34 g/dL (31-37) Red Cell Distribution Width 14.3 % (11.5-14.5) Platelet Count 275 x10^3/uL (140-400) Sodium Level 142 mmol/L (136-145) 137 mmol/L (136-145) Potassium Level 3.4 mmol/L (3.5-5.1) 4.1 mmol/L (3.5-5.1) Chloride Level 106 mmol/L (98-107) 105 mmol/L (98-107) Carbon Dioxide Level 28 mmol/L (21-32) 26 mmol/L (21-32) Anion Gap 8 (6-14) 6 (6-14) Blood Urea Nitrogen 8 mg/dL (7-20) 5 mg/dL (7-20) Creatinine 0.6 mg/dL (0.6-1.0) 0.6 mg/dL (0.6-1.0) Estimated GFR (Cockcroft-Gault) 94.6 94.6 BUN/Creatinine Ratio 13 (6-20) Glucose Level 93 mg/dL (70-99) 96 mg/dL (70-99) Calcium Level 8.1 mg/dL (8.5-10.1) 8.4 mg/dL (8.5-10.1) Total Bilirubin 0.6 mg/dL (0.2-1.0) Aspartate Amino Transf (AST/SGOT) 14 U/L (15-37) Alanine Aminotransferase (ALT/SGPT) 11 U/L (14-59) Alkaline Phosphatase 60 U/L (46-116) Total Protein 5.1 g/dL (6.4-8.2) Albumin 2.3 g/dL (3.4-5.0) Albumin/Globulin Ratio 0.8 (1.0-1.7) Laboratory Tests Test 10/02/19 06:55 Sodium Level 137 mmol/L (136-145) Potassium Level 4.1 mmol/L (3.5-5.1) Chloride Level 105 mmol/L (98-107) Carbon Dioxide Level 26 mmol/L (21-32) Anion Gap 6 (6-14) Blood Urea Nitrogen 5 mg/dL (7-20) Creatinine 0.6 mg/dL (0.6-1.0) Estimated GFR (Cockcroft-Gault) 94.6 Glucose Level 96 mg/dL (70-99) Calcium Level 8.4 mg/dL (8.5-10.1) Assessment/Plan Resolution of her ileus DC NG tube and advance diet as tolerated KRUNAL JO MD Oct 02, 2019 12:20
[2019-10-02 13:11] LABS: C-REACTIVE PROTEIN 31.2 mg/L (0-3.3); URIC ACID 4.3 mg/dL (2.6-6.0)
--- NOTE | 2019-10-02 14:37 | PN ---
DATE: 10/02/2019 SUBJECTIVE: The patient is sitting in her recliner comfortably, in no apparent distress. Her NG tube was clamped and she denied any nausea or vomiting. She apparently had a bowel movement and stated that she has passed some gas. Her main complaint today is actually pain in her right foot that is mostly on the inner side. Her first metatarsophalangeal joint is normal. There is no redness there. She has marked tenderness on the first metatarsal bone on the inner side. There is no obvious swelling or redness or obvious deformity. She has never had any history of gout before. PHYSICAL EXAMINATION: GENERAL: When I examined her, she looked well and was clearly in no apparent respiratory distress. No pallor, jaundice, cyanosis or thyromegaly. No jugular venous distention. No limb edema. VITAL SIGNS: Her heart rate was 101, blood pressure was 167/84, temperature was 97.9, respiratory rate was 18 and oxygen saturation was 97%. HEAD, EYES, EARS, NOSE AND THROAT: Showed normocephalic, atraumatic. She has NG tube to the right nostril. NECK: Supple. HEART: Normal first and second heart sounds. No gallop or murmur. CHEST: Clear to auscultation. No crepitation or rhonchi. ABDOMEN: Distended, soft, nontender. No guarding or rigidity. No organomegaly. All hernial orifice intact. Bowel sounds normal. NEUROLOGIC: She is awake, alert, responding appropriately. All cranial nerves intact. She moves extremities without difficulty. Her intake over the last 24 hours and output was incompletely recorded. LABORATORY DATA: Her chemistry this morning showed serum sodium was 137, potassium 4.1, chloride 105, bicarbonate 26, anion gap of 6, BUN 5, creatinine 0.6, estimated GFR was 95 mL per minute. Her glucose was 96, calcium was 8.4. ASSESSMENT AND PLAN: Paralytic ileus, seems to be improving. Her NG tube is clamped. Her lab work is much improved now. Her hypokalemia resolved. Hyponatremia resolved. She has pain in her right foot, for which I will add x-ray of her right foot and also check her serum uric acid, sed rate and C-reactive protein. ANNITA RED MD DR: ANNY/kenyon JOB#: [id number] / [id number]
--- NOTE | 2019-10-02 14:55 | NUR ---
SW following. Clinical updates faxed to the [facility]. SW will continue to follow.
--- NOTE | 2019-10-02 16:06 | RAD ---
Three-view right foot radiographs 10/02/2019 CLINICAL HISTORY: Right foot pain and swelling. Portable AP, lateral and oblique digital radiographs of the right foot were obtained. There is diffuse osteopenia of the visualized bony structures. Bony fusion across the first MTP joint is noted. Moderate degenerative changes are seen involving the interphalangeal joint of the right first toe. Mild to moderate degenerative changes are seen scattered throughout the interphalangeal joints of the right second through third toes. Mild to moderate degenerative changes are seen involving the second through third MTP joints throughout the tarsometatarsal joints. No fracture or dislocation is seen. Moderate enthesophyte formation seen involving the posterior right calcaneus. Soft tissue swelling is seen involving the anterior right foot. Impression: Degenerative changes are seen involving the right foot as discussed above. No acute osseous abnormality is seen. Electronically signed by: Wicho Carreon MD (10/02/2019 4:03 PM) [facility] [place]
[2019-10-03] VITALS (7 sets, daily range): BP systolic 128–178; BP diastolic 62–91
[2019-10-03 04:07] LABS: HEMATOCRIT 33.2 % (36.0-47.0); HEMOGLOBIN 11.5 g/dL (12.0-15.5); RED BLOOD COUNT 3.55 x10^6/uL (3.50-5.40); RED CELL DISTRIBUTION WIDTH 14.1 % (11.5-14.5)
[2019-10-03] MEDS: fentaNYL PF VIAL 100 MCG/2 ML VIAL IVP PRN ×2 (04:26→17:17)
[2019-10-03 04:27] LABS: CALCIUM 8.6 mg/dL (8.5-10.1); CREATININE 0.6 mg/dL (0.6-1.0); GFR 94.6; POTASSIUM 4.1 mmol/L (3.5-5.1)
[2019-10-03] MEDS: METOPROLOL TARTRATE 5 MG/5 ML VIAL. IVP SCH ×3 (06:25→18:18)
[2019-10-03] MEDS: PANTOPRAZOLE IV PUSH 40 MG VIAL. IVP SCH (09:42)
[2019-10-03] MEDS: hydrALAZINE 20 MG/ML VIAL. IVP PRN (09:43)
[2019-10-03 13:13] LABS: CALCIUM 9.1 mg/dL (8.5-10.1); CREATININE 0.7 mg/dL (0.6-1.0); GFR 79.2; MAGNESIUM 1.7 mg/dL (1.8-2.4); POTASSIUM 4.3 mmol/L (3.5-5.1)
--- NOTE | 2019-10-03 13:21 | PDOC ---
AMADO HAIDER SOFTWARE DESIGN ENGINEER 10/03/19 1321: SURGICAL PROGRESS NOTE Subjective tolerating diet having stools Vital Signs Vital Signs Date Time Temp Pulse Resp B/P (MAP) Pulse Ox O2 Delivery O2 Flow Rate FiO2 10/03/19 12:15 102 132/62 10/03/19 11:00 98.1 16 95 Room Air 98.1 10/02/19 08:00 3.0 General: Alert, Oriented X3, Cooperative, No acute distress Abdomen: Soft, No tenderness Labs Laboratory Tests Test 10/02/19 06:55 10/02/19 12:15 10/03/19 02:40 10/03/19 02:46 Sodium Level 137 mmol/L (136-145) 138 mmol/L (136-145) Potassium Level 4.1 mmol/L (3.5-5.1) 4.1 mmol/L (3.5-5.1) Chloride Level 105 mmol/L (98-107) 105 mmol/L (98-107) Carbon Dioxide Level 26 mmol/L (21-32) 24 mmol/L (21-32) Anion Gap 6 (6-14) 9 (6-14) Blood Urea Nitrogen 5 mg/dL (7-20) 4 mg/dL (7-20) Creatinine 0.6 mg/dL (0.6-1.0) 0.6 mg/dL (0.6-1.0) Estimated GFR (Cockcroft-Gault) 94.6 94.6 Glucose Level 96 mg/dL (70-99) 102 mg/dL (70-99) Calcium Level 8.4 mg/dL (8.5-10.1) 8.6 mg/dL (8.5-10.1) Erythrocyte Sedimentation Rate 30 (0-25) Uric Acid 4.3 mg/dL (2.6-6.0) C-Reactive Protein, Quantitative 31.2 mg/L (0-3.3) White Blood Count 7.0 x10^3/uL (4.0-11.0) Red Blood Count 3.55 x10^6/uL (3.50-5.40) Hemoglobin 11.5 g/dL (12.0-15.5) Hematocrit 33.2 % (36.0-47.0) Mean Corpuscular Volume 94 fL (79-100) Mean Corpuscular Hemoglobin 33 pg (25-35) Mean Corpuscular Hemoglobin Concent 35 g/dL (31-37) Red Cell Distribution Width 14.1 % (11.5-14.5) Platelet Count 242 x10^3/uL (140-400) Test 10/03/19 12:30 Sodium Level 135 mmol/L (136-145) Potassium Level 4.3 mmol/L (3.5-5.1) Chloride Level 101 mmol/L (98-107) Carbon Dioxide Level 25 mmol/L (21-32) Anion Gap 9 (6-14) Blood Urea Nitrogen 3 mg/dL (7-20) Creatinine 0.7 mg/dL (0.6-1.0) Estimated GFR (Cockcroft-Gault) 79.2 Glucose Level 112 mg/dL (70-99) Calcium Level 9.1 mg/dL (8.5-10.1) Magnesium Level 1.7 mg/dL (1.8-2.4) Laboratory Tests Test 10/03/19 02:40 10/03/19 02:46 10/03/19 12:30 Sodium Level 138 mmol/L (136-145) 135 mmol/L (136-145) Potassium Level 4.1 mmol/L (3.5-5.1) 4.3 mmol/L (3.5-5.1) Chloride Level 105 mmol/L (98-107) 101 mmol/L (98-107) Carbon Dioxide Level 24 mmol/L (21-32) 25 mmol/L (21-32) Anion Gap 9 (6-14) 9 (6-14) Blood Urea Nitrogen 4 mg/dL (7-20) 3 mg/dL (7-20) Creatinine 0.6 mg/dL (0.6-1.0) 0.7 mg/dL (0.6-1.0) Estimated GFR (Cockcroft-Gault) 94.6 79.2 Glucose Level 102 mg/dL (70-99) 112 mg/dL (70-99) Calcium Level 8.6 mg/dL (8.5-10.1) 9.1 mg/dL (8.5-10.1) White Blood Count 7.0 x10^3/uL (4.0-11.0) Red Blood Count 3.55 x10^6/uL (3.50-5.40) Hemoglobin 11.5 g/dL (12.0-15.5) Hematocrit 33.2 % (36.0-47.0) Mean Corpuscular Volume 94 fL (79-100) Mean Corpuscular Hemoglobin 33 pg (25-35) Mean Corpuscular Hemoglobin Concent 35 g/dL (31-37) Red Cell Distribution Width 14.1 % (11.5-14.5) Platelet Count 242 x10^3/uL (140-400) Magnesium Level 1.7 mg/dL (1.8-2.4) Problem List soft diet will sign off KRUNAL JO MD 10/03/192043: SURGICAL PROGRESS NOTE Assessment/Plan Agree with Warren's assessment and plan AMADO HAIDER APRN Oct 03, 2019 13:21 KRUNAL JO MD Oct 03, 2019 20:44
--- NOTE | 2019-10-03 13:25 | NUR ---
PT request for orders: Rehab screen indicates possible need for PT eval and treat Please order if you agree. Thanks Abdirahman Choi PT
[2019-10-03] MEDS: POTASSIUM CHLORIDE 40 MEQ in IV DEXTROSE 5% 1,000 ML IV SCH (14:48)
--- NOTE | 2019-10-03 14:56 | RAD ---
BONE SCAN LIMITED Clinical Indication: Medial right foot pain off-and-on x10 days. No known injury. Comparison: Right foot, 3 views, prior day. TECHNIQUE: Patient is injected with 26 mCi of technetium 99m MDP. After routine delay right and left lateral and plantar and dorsal static images of the feet obtained. Findings: On delay images there is increased noise to signal ratio, tracer remaining in the soft tissues is greater than expected. There is increased tracer uptake of the mid right foot probably localizing to the proximal metatarsals. The uptake is central in the right foot. The tracer uptake could be posttraumatic or degenerative or inflammatory or due to osteonecrosis. It is assumed that there is no clinical evidence of infection. There is faint tracer uptake in the left midfoot. Mildly increased tracer uptake of the bilateral great toes. IMPRESSION: Increased tracer uptake of the central right midfoot. Electronically signed by: Anirudh Barry MD (10/03/2019 2:53 PM) [id number]
[2019-10-03] MEDS ORDERED: MAGNESIUM SULFATE 2GM 50 ML IV ONE (16:00)
[2019-10-04] MEDS: METOPROLOL TARTRATE 5 MG/5 ML VIAL. IVP SCH ×3 (00:01→12:00)
[2019-10-04 03:05] VITALS: BP 135/63
[2019-10-04 06:20] LABS: CALCIUM 8.7 mg/dL (8.5-10.1); CREATININE 0.6 mg/dL (0.6-1.0); GFR 94.6; POTASSIUM 4.1 mmol/L (3.5-5.1)
[2019-10-04 07:00] VITALS: BP 128/70
[2019-10-04] MEDS: PANTOPRAZOLE IV PUSH 40 MG VIAL. IVP SCH (08:37)
[2019-10-04] MEDS ORDERED: DICLOFENAC SODIUM 1% TOPICAL GEL 100GM TUBE. TP PRN (09:15)
[2019-10-04] MEDS ORDERED: LOPERAMIDE 2 MG CAPSULE PO PRN (09:15)
[2019-10-04] MEDS ORDERED: diphenhydrAMINE HCL 25 MG CAPSULE PO PRN (09:15)
[2019-10-04] MEDS ORDERED: ONDANSETRON ODT 4 MG TAB.RAPDIS. PO PRN (09:15)
[2019-10-04] MEDS ORDERED: ACETAMINOPHEN/CODEINE 300/30MG TABLET. PO PRN (09:15)
[2019-10-04] MEDS ORDERED: POLYETHYLENE GLYCOL 3350 17 GM PACKET. PO PRN (09:15)
[2019-10-04] MEDS ORDERED: ACETAMINOPHEN 500 MG TABLET PO PRN (09:15)
[2019-10-04] MEDS ORDERED: METHOCARBAMOL 750 MG TABLET PO PRN (09:15)
[2019-10-04] MEDS ORDERED: diphenhydrAMINE ORAL ELIXIR 12.5 MG/5 ML ML PO PRN (09:30)
[2019-10-04] MEDS ORDERED: METOPROLOL TART IMMED RELEASE 25 MG TABLET. PO SCH (10:00)
[2019-10-04] MEDS ORDERED: POTASSIUM CHLORIDE 10 MEQ TABLET.ER. PO SCH (10:00)
[2019-10-04] MEDS ORDERED: TORSEMIDE 20 MG TABLET. PO SCH (10:00)
[2019-10-04 11:00] VITALS: BP 130/63
[2019-10-04 15:00] VITALS: BP 127/66
--- NOTE | 2019-10-04 15:52 | SNU/HH DC ---
DISCHARGE ORDERS DISCHARGE INFORMATION: DISCHARGE DATE: Oct 04, 2019 FINAL DIAGNOSIS small bowel obstruction hypertension stress fracture right foot CONDITION ON DISCHARGE: Stable CODE STATUS: Code Status: Full HALFWAY: SNF STAY <30 DAYS: Yes POST DISCHARGE ORDERS: ACTIVITY ORDERS: Resume previous activity DIET AFTER DISCHARGE: Regular DISCHARGE MEDICATIONS: Home Meds Reported Medications Cholecalciferol (Vitamin D3) (VITAMIN D3) 3,000 Unit Tablet, 1 TAB PO DAILY for supplament for 30 Days, #30 TAB 0 Refills 09/27/19 Echinacea (ECHINACEA) 400 Mg Capsule, 400 MG PO DAILY for multivitamin, CAP 09/27/19 Calcium Citrate/Vitamin D3 (CITRACAL-VIT D 250 MG-200 TAB) 1 Each Tablet, 1 EACH PO DAILY for multivitamin, TAB 09/27/19 Multivits-Min/Fa/Lycopene/Lut (CENTRUM SILVER TABLET) 1 Each Tablet, 1 EACH PO DAILY for multivitamin, TAB 09/27/19 Metoprolol Tartrate (METOPROLOL TARTRATE) 50 Mg Tablet, 1 TAB PO HS for htn, #60 TAB 5 Refills 09/27/19 Metoprolol Tartrate (METOPROLOL TARTRATE) 25 Mg Tablet, 1 TAB PO DAILY for htn, #180 TAB 1 Refill 09/27/19 Bismuth Subsalicylate (Kaopectate) 262 Mg Tablet, 262 MG PO PRN PRN for IBS, TAB 09/27/19 Ondansetron (ONDANSETRON ODT) 4 Mg Tab.rapdis, 1 TAB PO PRN Q8HRS PRN for NAUSEA, #16 TAB 09/27/19 Simethicone (ANTI-GAS) 166 Mg Capsule, 1 CAP PO TID for gerd for 15 Days, #45 CAP 0 Refills 09/27/19 Magnesium Carbonate/Al Hydrox (GAVISCON ES TABLET CHEW) 1 Each Tab.chew, 1 EACH PO QID for GERD, TAB.CHEW 09/27/19 Polyethylene Glycol 3350 (MIRALAX) 17 Gm Powd.pack, 1 PACKET PO PRN PRN for CONSTIPATION for 2 Days, PACKET 0 Refills dissolve in water 09/27/19 Torsemide (TORSEMIDE) 20 Mg Tablet, 1 TAB PO DAILY for hypertension, #90 TAB 1 Refill 09/27/19 Loperamide HCl (Imodium A-D) 2 Mg Capsule, 2 MG PO PRN PRN for IBS, CAP 09/27/19 Lactobacillus Rhamnosus Gg (CULTURELLE) 1 Each Cap.sprink, 1 CAP PO BID for Probiotic for 30 Days, #60 CAP 0 Refills 09/27/19 Acetaminophen With Codeine (TYLENOL WITH CODEINE #3 TABLET) 1 Each Tablet, 1 TAB PO PRN Q8HRS PRN for pain MDD 2 Tablet(s) for 30 Days, #60 TAB 0 Refills 09/27/19 Diclofenac Sodium (VOLTAREN) 100 Gm Gel..gram., 2 GM TP PRN QID PRN for PAIN for 30 Days, #1 EACH 0 Refills apply to affected area(s) 09/27/19 Betamethasone Dipropionate (BETAMETHASONE DIPROPIONATE) 15 Gm Cream..g., 1 DESMOND TP HS for atopic dermatities, #15 GM 3 Refills 09/27/19 Methocarbamol (ROBAXIN-750) 750 Mg Tablet, 500 MG PO PRN Q8HRS PRN for MUSCLE SPASMS, TAB 09/27/19 Acetaminophen (ACETAMINOPHEN) 500 Mg Tablet, 2 TAB PO PRN Q8HRS PRN for Cervivalgia for 15 Days, #60 TAB 0 Refills 09/27/19 Mometasone Furoate (MOMETASONE FUROATE) 45 Gm Cream..g., 1 DESMOND TP PRN PRN for Atopic dermatitis, #45 GM 1 Refill 09/27/19 Ketoconazole (KETOCONAZOLE) 120 Ml Shampoo, 1 DESMOND TP QMWF for Atopic dermatitis for 30 Days, #120 ML 0 Refills with at least 3 days between each shampooing 09/27/19 Simvastatin (SIMVASTATIN) 40 Mg Tablet, 1 TAB PO QHS for hyperlipidemia, #30 TAB 5 Refills 09/27/19 Potassium Chloride (KLOR-CON 10) 10 Meq Tablet.er, 4 TAB PO BID for Hypokalemia for 30 Days, #240 TAB 0 Refills 09/27/19 Metronidazole (METRONIDAZOLE) 70 Gm Gel.w.appl, 1 APPFUL MC QHS for Rosacea, #70 GM 09/27/19 [ipratropium [place] ] No Conflict Check, 0.3 % NS PRN PRN for ALLERGIES 09/27/19 Magnesium Carbonate/Al Hydrox (GAVISCON ES TABLET CHEW) 1 Each Tab.chew, 1 EACH PO PRN PRN for STOMACH CRAMPING, TAB.CHEW 09/27/19 Celecoxib (CELEBREX) 200 Mg Capsule, 1 CAP PO HS for Osteoporosis, #30 CAP 2 Refills 09/27/19 Diphenhydramine Hcl (BENADRYL ALLERGY) 25 Mg Tablet, 0.5 TAB PO QHS for insomnia for 30 Days, #15 TAB 0 Refills 09/27/19 Aspirin (ASPIRIN) 81 Mg Tab.chew, 1 TAB PO DAILY for healthy heart, #30 TAB 3 Refills 09/27/19 ANNITA RED MD Oct 04, 2019 15:52
[2019-10-04] MEDS ORDERED: KETOCONAZOLE 2% SHAMPOO 120ML BOTTLE. TP SCH (16:00)
--- NOTE | 2019-10-04 16:02 | NUR ---
SS following up with discharge planning. Discharge orders received. SS faxed discharge orders to [facility], ; fax [phone]. [facility] currently awaiting report from pt's RN. Pt's RN notified. [facility] reported that they will arrange transport for pt once they have received report from pt's RN.
[2019-10-04] MEDS: ONDANSETRON PF 4 MG/2 ML VIAL. IVP PRN (16:16)
--- NOTE | 2019-10-04 17:45 | NUR ---
Pt escorted out with belongings and [facility] to main entrance in [facility] transportation in their wheelchair.
[2019-10-04] MEDS ORDERED: BETAMETHASONE DP AUGMENTED 0.05% 15gm CREAM TUBE. TP SCH (21:00)
[2019-10-04] MEDS ORDERED: LACTOBACILLUS RHAMNOSUS GG 1 CAPSULE. PO SCH (21:00)
[2019-10-04] MEDS ORDERED: metroNIDAZOLE 0.75% VAGINAL 1 APP TUBE VG SCH (21:00)
[2019-10-04] MEDS ORDERED: SIMVASTATIN 40 MG TABLET. PO SCH (21:00)
[2019-10-04] MEDS ORDERED: metroNIDAZOLE 0.75% TOPICAL 1 APP TUBE TP SCH (21:00)
[2019-10-04] MEDS ORDERED: METOPROLOL TART IMMED RELEASE 50 MG TABLET. PO SCH (21:00)
[2019-10-05] MEDS ORDERED: ASPIRIN CHEWABLE 81 MG TABLET. PO SCH (09:00)
--- NOTE | 2019-10-05 09:41 | PN ---
DATE: 10/04/2019 SUBJECTIVE: The patient is sitting at the edge of the bed, continued to complain of palpitation and apparently has not slept last night because of multiple loose bowel movements. She continued to complain of pain in her right foot. We did a bone scan, which showed that the patient has increased tracer uptake at the mid right foot, probably localizing to the proximal metatarsals, the uptake is central in the right foot. The tracer uptake could be posttraumatic, degenerative, inflammatory or due to osteonecrosis, assumed that there is no clinical evidence of infection. PHYSICAL EXAMINATION: GENERAL: When I examined her, she looked well and was clearly in no apparent respiratory distress. No pallor, jaundice, cyanosis or thyromegaly. No jugular venous distention. No lower limb edema. VITAL SIGNS: Her heart rate was 92, blood pressure was 128/70, temperature was 98.6, respiratory rate was 16, and oxygen saturation was 95%. HEAD, EYES, EARS, NOSE AND THROAT: Showed normocephalic, atraumatic. NECK: Supple. HEART: Showed normal first and second heart sounds with no gallop or murmur. CHEST: Clear to auscultation. No crepitation or rhonchi. ABDOMEN: Distended, soft, nontender. No guarding or rigidity. No organomegaly. All hernial orifice intact. Bowel sounds normal. NEUROLOGIC: She is awake, alert, responding appropriately. All cranial nerves are intact. She moves extremities without difficulty, although she is unable to walk because of severe pain in her right foot. Her intake over the last 24 hours and output are incompletely recorded. LABORATORY DATA: As of yesterday, her white cell count was 7000, hemoglobin 11, hematocrit 33, MCV 94 and platelet count 242,000. Her serum sodium was 141, potassium 4.1, chloride 105, bicarbonate 25, anion gap of 11, BUN 5, creatinine 0.6, estimated GFR was 94 mL per minute. Her glucose was 98, calcium was 8.7. ASSESSMENT: Paralytic ileus, resolved. Tachycardia for which we reconciled all her medication. She is now back on oral beta blockers. Her biggest problem is pain in her right foot and difficulty walking with the finding on the bone scan showing that there is increased tracer uptake in the mid right foot, probably localizing to the proximal metatarsal, the uptake is central in the right foot. The tracer uptake could be posttraumatic or degenerative, inflammatory or due to osteonecrosis, assuming that there is no clinical evidence of infection. Her right foot is definitely more swollen than the left. PLAN: Plan is to wait for the evaluation by the orthopedic surgeon and obviously await their recommendations, perhaps in a walking boot, and if she remains stable, she can be discharged back to her mother's house. ANNITA RED MD DR: ANNY/kenyon JOB#: [id number] / [id number]
== END 2019-10-04 17:45 | DRG 389 ==
LOC: 5 SOUTH 16:33 → 6 SOUTH 09-27 20:40
PROVIDERS: ADMIT Internal Medicine; ATTEND Internal Medicine
PROC: 0D9670Z Drainage of Stomach with Drainage Device, Via Natural or Artificial Opening (ICD-10-PCS; principal; 2019-09-26)
DX: K56.609 Unspecified intestinal obstruction, unspecified as to partial versus complete obstruction (principal); E87.0 Hyperosmolality and hypernatremia; E87.1 Hypo-osmolality and hyponatremia; E44.0 Moderate protein-calorie malnutrition; K56.0 Paralytic ileus; E78.5 Hyperlipidemia, unspecified; E86.0 Dehydration; E87.6 Hypokalemia; I10 Essential (primary) hypertension; M19.90 Unspecified osteoarthritis, unspecified site; M41.9 Scoliosis, unspecified; Z82.49 Family history of ischemic heart disease and other diseases of the circulatory system; Z85.3 Personal history of malignant neoplasm of breast; Z90.11 Acquired absence of right breast and nipple; Z98.41 Cataract extraction status, right eye; Z98.42 Cataract extraction status, left eye; Z90.49 Acquired absence of other specified parts of digestive tract; Z68.24 Body mass index [BMI] 24.0-24.9, adult; Z88.8 Allergy status to other drugs, medicaments and biological substances; Z79.899 Other long term (current) drug therapy
CPT/HCPCS: 36415; 73630; 74018; 74022; 74250; 78300; 80048; 80053; 83605; 83615; 83735; 84550; 85027; 85651; 86140; 99285; A9503; C9113; J0360; J2405; J2765; J3010; J3475; J3480; J3490; J7030; J7060; Q9967; G0378